=== PATIENT | female | born 1955 | race Caucasian/White ===

== ENCOUNTER 2019-02-12 13:38 | Observation (INO) | payer MEDICARE, BC ==
[2019-02-12] MEDS ORDERED: Sodium Chloride 0.9% 10 ML Syringe FLUSH PRN (13:48)
[2019-02-12] MEDS ORDERED: diphenhydrAMINE 50 MG/ML SDV IVPUSH ONE (13:49)
[2019-02-12] MEDS ORDERED: Prochlorperazine 10 MG/2 ML SDV IV ONE (13:49)
[2019-02-12] MEDS ORDERED: Ketorolac 15 MG/ML SDV IVPUSH ONE (13:49)
[2019-02-12] MEDS ORDERED: Sodium Chloride 0.9% 1,000 ML IV ONE (13:50)
--- NOTE | 2019-02-12 14:14 | EDM.PDOC ---
ED HPI GENERAL MEDICAL PROBLEM - General Chief Complaint: General Stated Complaint: Syncopal episode Time Seen by Provider: 02/12/19 13:38 Source of Information: Reports: Patient History Limitations: Reports: No Limitations - History of Present Illness INITIAL COMMENTS - FREE TEXT/NARRATIVE: Patient comes into the emergency department with complaint of syncopal episode. Patient states she was at home cooking when she felt faint and dizzy. Her was by her side and helped assist her to the ground. Patient states that she has not member the event but her states that her eyes remained open and patient continued talking to him, her hands were clammy and she was very pale. He ended up calling 911 for further assistance. EMS on scene and found that she was in a sinus arrhythmia heart rate anywhere in the 40s to the 70s. By the time she arrived at the emergency department she was feeling better however she was still feeling lightheaded and weak with a discomfort in the right occipital area. She has a history of migraines and she states that she often at these migraines and she was younger greater on her period time. She states that she does have a low throbbing headache on the right lower aspect of the occipital region. She states that it is consistent with the migraines that she's had in the past. She denies any focal neural deficits. She admits to having syncopal episodes with these migraines when younger. She denies any cardiac discomfort, chest pain, short of breath, GI upset, lower externally swelling, vision changes, or dizziness currently. She denies any recent illnesses or hospitalizations. Quality: Reports: Other Improves with: Reports: None Worsens with: Reports: None Associated Symptoms: Reports: No Other Symptoms Right Neck Pain Score (Numeric/FACES): 4 - Related Data Allergies Allergy/AdvReac Type Severity Reaction Status Date / Time BENITA Inhibitors Allergy Swelling Verified 02/12/19 13:51 amoxicillin Allergy Rash Verified 02/12/19 13:51 codeine Allergy Other Verified 02/12/19 13:51 Vhyfccn-Bim-Hsc Reductase Allergy Other Verified 02/12/19 13:51 Inhibitor Sulfa (Sulfonamide Allergy Hives Verified 02/12/19 13:51 Antibiotics) topiramate Allergy Nausea Verified 02/12/19 13:51 verapamil Allergy Abdominal Verified 02/12/19 13:51 Pain Home Meds: Home Meds Esomeprazole Magnesium [Nexium] 40 mg PO DAILY 11/29/14 [History] Levothyroxine 75 mcg PO DAILY 11/29/14 [History] Montelukast Sodium [Singulair] 10 mg PO DAILY 11/29/14 [History] Sertraline HCl [Zoloft] 100 mg PO DAILY 11/29/14 [History] Albuterol Sulfate [Albuterol Sulfate HFA] 1 - 2 puff IH Q4H PRN 04/26/15 [ History] Albuterol [Proventil Neb Soln] 2.5 mg NEB QIDRT PRN 04/26/15 [History] Primidone 50 mg PO TID 04/26/15 [History] Budesonide/Formoterol Fumarate [Symbicort 160-4.5 Mcg Inhaler] 2 puff IH BID [History] Polyethylene Glycol 3350 [MiraLAX] 17 gm PO DAILY 09/14/16 [History] Diltiazem HCl [Cardizem] 15 mg PO QID 05/03/18 [History] Fluticasone Propionate [Flonase] 2 spray NASBOTH DAILY 05/03/18 [History] Folic Acid/Multivit-Min/Lutein [Multi-Vitamin Gummies] 1 tab PO BID 05/03/18 [ History] Pramipexole Di-HCl [Mirapex] 0.25 tab PO BEDTIME 05/03/18 [History] Pravastatin Sodium [Pravachol] 10 mg PO DAILY 05/03/18 [History] Past Medical History Cardiovascular History: Reports: High Cholesterol Other Cardiovascular History: hyperlipidemia, hypertriglyceridemia Respiratory History: Reports: Asthma Gastrointestinal History: Reports: Chronic Constipation, GERD Other Gastrointestinal History: gastritis, stomach ulcers, hernia in stomach Genitourinary History: Reports: Urinary Incontinence Other EDGE BURNISHER History: miscarriage Other Musculoskeletal History: periodic limb movement disorder, RLS, arthritis Other Neuro History: smaller back of brain Psychiatric History: Reports: Anxiety Endocrine/Metabolic History: Reports: Diabetes, Type II, Hypothyroidism Other Endocrine/Metabolic History: hypothyroidism, hyperglycemia - Past Surgical History Other HEENT Surgeries/Procedures: septoplasty, rhinoplasty GI Surgical History: Reports: Bariatric Procedure Other GI Surgeries/Procedures: gastric bypass 2months ago. Social & Family History - Caffeine Use Caffeine Use: Reports: None ED ROS GENERAL - Review of Systems Review Of Systems: See Below Constitutional: Reports: No Symptoms HEENT: Reports: No Symptoms Respiratory: Reports: No Symptoms Cardiovascular: Reports: No Symptoms Endocrine: Reports: No Symptoms GI/Abdominal: Reports: No Symptoms Musculoskeletal: Reports: No Symptoms Skin: Reports: No Symptoms Neurological: Reports: Dizziness, Headache, Syncope. Denies: Confusion, Paresthesia, Tingling, Tremors, Trouble Speaking, Difficulty Walking, Weakness, Change in Speech, Gait Disturbance Psychiatric: Reports: No Symptoms Hematologic/Lymphatic: Reports: No Symptoms Immunologic: Reports: No Symptoms ED EXAM, GENERAL - Physical Exam Exam: See Below Exam Limited By: No Limitations General Appearance: Alert, WD/WN, No Apparent Distress Eye Exam: Bilateral Eye: EOMI, PERRL Ear Exam: Bilateral Ear: Auricle Normal, Canal Normal, TM normal Throat/Mouth: Normal Inspection, Normal Lips Head: Atraumatic, Normocephalic Neck: Normal Inspection, Supple, Non-Tender, Full Range of Motion Cardiovascular: Normal Peripheral Pulses, Bradycardia Extremities: Normal Inspection, Normal Range of Motion, No Pedal Edema, Normal Capillary Refill Neurological: Alert, Oriented Psychiatric: Normal Affect, Normal Mood Skin Exam: Cool, Pallor Course - Vital Signs Last Recorded V/S: Last Vital Signs Temp 35.7 C 02/12/19 13:45 Pulse 52 L 02/12/19 13:45 Resp 16 02/12/19 13:45 BP 96/59 L 02/12/19 13:45 Pulse Ox 99 02/12/19 13:45 - Orders/Labs/Meds Orders: Active Orders 24 hr Category Date Time Status Admission Status [Patient Status] [ADT] Routine ADT 02/12/19 15:09 Ordered Sodium Chloride 0.9% [Saline Flush] Med 02/12/19 13:48 Active 10 ml FLUSH ASDIRECTED PRN Peripheral IV Insertion Adult [OM.PC] Stat Oth 02/12/19 13:48 Ordered Medication Orders Sodium Chloride (Saline Flush) 10 ml FLUSH ASDIRECTED PRN PRN Reason: Keep Vein Open Labs: Laboratory Tests 02/12/19 02/12/19 Range/Units 13:55 13:55 WBC 7.0 (4.0-10.0) x10^3/uL RBC 3.82 L (4.00-5.50) x10^6/uL Hgb 11.7 L D (12.0-16.0) g/dL Hct 35.1 (33.0-47.0) % MCV 91.9 D (78.0-93.0) fL MCH 30.6 (26.0-32.0) pg MCHC 33.3 (32.0-36.0) g/dL RDW Coeff of Nishant 14.1 (10.0-15.0) % Plt Count 242 D (130-400) x10^3/uL Add Manual Diff Yes Neutrophils % (Manual) 53 (50-80) % Band Neutrophils % 2 (0-6) % Lymphocytes % (Manual) 31 (25-50) % Monocytes % (Manual) 3 (2-11) % Eosinophils % (Manual) 10 H (0-4) % Basophils % (Manual) 1 (0-1) % Sodium 145 (136-145) mmol/L Potassium 3.3 L (3.5-5.1) mmol/L Chloride 106 (98-107) mmol/L Carbon Dioxide 28 (21-32) mmol/L Anion Gap 14.3 (10-20) mmol/L BUN 21 H (7-18) mg/dL Creatinine 0.8 (0.55-1.02) mg/dL Est Cr Clr Drug Dosing TNP Estimated GFR (MDRD) > 60 Glucose 77 (74-106) mg/dL Calcium 8.4 L (8.5-10.1) mg/dL Corrected Calcium 9.20 (8.5-10.1) mg/dL Total Bilirubin 0.4 (0.2-1.0) mg/dL AST 31 (15-37) U/L ALT 35 (14-59) U/L Alkaline Phosphatase 119 H (46-116) U/L Troponin I < 0.017 (<=0.056) ng/mL NT-Pro-B Natriuret Pep 232 H (<=125) pg/mL Total Protein 6.4 (6.4-8.2) g/dL Albumin 3.0 L (3.4-5.0) g/dL Globulin 3.4 Albumin/Globulin Ratio 0.88 Meds: Medications Generic Name Dose Route Start Last Admin Trade Name Freq PRN Reason Stop Dose Admin Sodium Chloride 10 ml 02/12/19 13:48 Saline Flush FLUSH ASDIRECTED PRN Keep Vein Open Discontinued Medications Generic Name Dose Route Start Last Admin Trade Name Robert PRN Reason Stop Dose Admin Diphenhydramine HCl 25 mg 02/12/19 13:49 02/12/19 13:54 Benadryl IVPUSH 02/12/19 13:50 25 mg ONETIME ONE Administration Sodium Chloride 1,000 mls @ 1,000 mls/hr 02/12/19 13:50 02/12/19 13:58 Normal Saline IV 02/12/19 14:49 1,000 mls/hr ONETIME ONE Administration Ketorolac Tromethamine 15 mg 02/12/19 13:49 02/12/19 13:56 Toradol IVPUSH 02/12/19 13:50 15 mg ONETIME ONE Administration Prochlorperazine Edisylate 10 mg 02/12/19 13:49 02/12/19 13:59 Compazine IV 02/12/19 13:50 10 mg ONETIME ONE Administration Departure - Departure Time of Disposition: 15:20 Disposition: Refer to Observation Condition: Good Clinical Impression: Syncope Qualifiers: Syncope type: unspecified Qualified Code(s): R55 - Syncope and collapse Migraine Qualifiers: Migraine type: without aura Status migrainosus presence: without status migrainosus Intractability: not intractable Qualified Code(s): G43.009 - Migraine without aura, not intractable, without status migrainosus - Discharge Information *PRESCRIPTION DRUG MONITORING PROGRAM REVIEWED*: Not Applicable *COPY OF PRESCRIPTION DRUG MONITORING REPORT IN PATIENT ELLIOTT: Not Applicable Forms: ED Department Discharge - Problem List Review Problem List Initiated/Reviewed/Updated: Yes - My Orders Last 24 Hours: My Active Orders 02/12/19 13:48 Sodium Chloride 0.9% [Saline Flush] 10 ml FLUSH ASDIRECTED PRN Peripheral IV Insertion Adult [OM.PC] Stat 02/12/19 15:09 Admission Status [Patient Status] [ADT] Routine - Assessment/Plan Admission H&P: Please use this note as an admission H&P Last 24 Hours: My Active Orders 02/12/19 13:48 Sodium Chloride 0.9% [Saline Flush] 10 ml FLUSH ASDIRECTED PRN Peripheral IV Insertion Adult [OM.PC] Stat 02/12/19 15:09 Admission Status [Patient Status] [ADT] Routine Assessment:: 1. Syncopal episode 2. Migraine Plan: 1. Labs completed in the ER. Results reviewed with patient 2. EKG from ambulance reviewed and results reviewed with the patient. 3. Normal saline, Compazine, Benadryl, Toradol given emergency Department for comfort 4. CT of the head completed without contrast. Results reviewed with patient. No acute findings 5. Patient states that she is feeling better however she still has a lingering headache. She is also nervous about going home because of the sudden onset of the syncopal episode. Patient's heart rate continues to trend high 40s low 50s. Patient has no chest discomfort or shortness of breath currently. She also states that the dizziness and lightheaded has resolved. Patient will be admitted under observation for further monitoring regarding her syncopal episode /bradycardia and migraine. 6. Admit under observation #1 syncopal episode - IV fluids will be given to maintain hydration - Cardiac monitoring, vital signs, and nursing monitoring while patient is hospitalized - Lab reevaluation will be completed later this afternoon again in the morning - Orthostatic blood pressures will be monitored - Neurological exams will be completed at minimum every 4 hours or if patient' s condition changes #2 migraine - Oral and IV medication be available to the patient if headaches continue - Neurological checks will be completed every 4 hours for evaluation of worsening of the symptoms - CT completed emergency department. Results were negative no acute findings. We'll continue to monitor - IV fluids provided to the patient during hospitalization DVT prophylaxis will be initiated, code level 1, diet regular, ambulation as tolerated, and cardiac monitoring continuous.
[2019-02-12 14:31] LABS: ANION GAP 14.3 mmol/L (10-20); CHLORIDE,CL 106 mmol/L (98-107); SODIUM,NA 145 mmol/L (136-145)
--- NOTE | 2019-02-12 14:57 | CT ---
[id number] CT/CT Head WO IV EXAM: CT Head WO IV CLINICAL DATA: SYNCOPAL EPISODE. COMPARISON STUDY: None FINDINGS: No intracranial hemorrhage, extra-axial fluid collection, mass, or acute ischemia. No hydrocephalus. Mild changes of paranasal sinusitis, including air-fluid levels in the maxillary sinuses, suggesting acute sinusitis. Mastoid air cells middle ear cavities are clear. IMPRESSION: Normal examination of the brain. Acute maxillary sinusitis. Rayo Hicks MD 02/12/19 [id number] Thank you for allowing us to participate in the care of your patient.
[2019-02-12] MEDS ORDERED: Ondansetron 4 MG Tab.DIS PO PRN (16:00)
[2019-02-12] MEDS ORDERED: Ketorolac 30 MG/ML SDV IVPUSH PRN (16:00)
[2019-02-12] MEDS ORDERED: Hydrocortisone 2.5% Crm 30 GM Tube TOP PRN (16:04)
[2019-02-12] MEDS ORDERED: Take Home: Albuterol 6.7 GM Inhaler, 1 Inhaler Pack INH PRN (16:04)
[2019-02-12] MEDS ORDERED: Polyethylene Glycol 3350 Powder 17 GM Packet PO PRN (16:04)
[2019-02-12] MEDS ORDERED: Albuterol 0.083% 2.5 MG/3 ML Neb Soln NEB PRN (16:04)
[2019-02-12] MEDS: Sodium Chloride 0.9% 1,000 ML IV SCH (16:28)
[2019-02-12] MEDS: Primidone 50 MG Tab PO SCH (19:14)
[2019-02-12] MEDS: SYMBICORT 160-4.5 **OWN MED IH SCH (19:15)
[2019-02-12] MEDS: Calcium Carbonate 750 MG Tab.Chew PO SCH (19:15)
[2019-02-12] MEDS ORDERED: Pramipexole 0.125 MG Tab PO SCH (20:00)
[2019-02-12] MEDS ORDERED: Doxycycline 100 MG Cap PO SCH (20:00)
[2019-02-13] MEDS: Sodium Chloride 0.9% 1,000 ML IV SCH ×2 (00:08→07:50)
[2019-02-13 06:50] VITALS: BP 133/77
[2019-02-13] MEDS ORDERED: Levothyroxine 75 MCG Tab PO SCH (07:00)
[2019-02-13] MEDS ORDERED: Omeprazole 20 MG Cap.CR PO SCH (07:00)
[2019-02-13] MEDS: Calcium Carbonate 750 MG Tab.Chew PO SCH (07:51)
[2019-02-13] MEDS: Primidone 50 MG Tab PO SCH (07:54)
[2019-02-13] MEDS: SYMBICORT 160-4.5 **OWN MED IH SCH (07:54)
[2019-02-13] MEDS ORDERED: predniSONE 10 MG Tab PO SCH (08:00)
[2019-02-13] MEDS ORDERED: Sertraline 100 MG Tab PO SCH (08:00)
[2019-02-13] MEDS ORDERED: Montelukast 10 MG Tab PO SCH (08:00)
[2019-02-13] MEDS ORDERED: Simvastatin 10 MG Tab PO SCH (08:00)
[2019-02-13] MEDS ORDERED: Fluticasone Propionate Nasal Spray 16 GM Bottle NASBOTH SCH (08:00)
[2019-02-13] MEDS ORDERED: Multivitamins with Iron/Calcium/Folic Acid/Minerals Tab PO SCH (08:00)
[2019-02-13 08:24] LABS: CHLORIDE,CL 109 mmol/L (98-107); SODIUM,NA 144 mmol/L (136-145)
[2019-02-13 08:25] LABS: ANION GAP 13.1 mmol/L (10-20)
--- NOTE | 2019-02-13 08:47 | PCM.DCSUM1 ---
Discharge Summary - Hospital Course HPI Initial Comments: Patient came into the emergency department yesterday with complaint of syncopal episode. Patient states she was at home cooking when she felt faint and dizzy. Her was by her side and helped assist her to the ground. Patient states that she has not member the event but her states that her eyes remained open and patient continued talking to him, her hands were clammy and she was very pale. He ended up calling 911 for further assistance. EMS on scene and found that she was in a sinus arrhythmia heart rate anywhere in the 40s to the 70s. By the time she arrived at the emergency department she was feeling better however she was still feeling lightheaded and weak with a discomfort in the right occipital area. She has a history of migraines and she states that she often at these migraines and she was younger greater on her period time. She states that she does have a low throbbing headache on the right lower aspect of the occipital region. She states that it is consistent with the migraines that she's had in the past. She denies any focal neural deficits. She admits to having syncopal episodes with these migraines when younger. She denies any cardiac discomfort, chest pain, short of breath, GI upset, lower externally swelling, vision changes, or dizziness currently. She denies any recent illnesses or hospitalizations.Over the course of the night the patient was given IV fluids, labs, and cardiac monitoring. Pt denies any concerns from the night. Staff state she did have one episode of bradycardia in the 30's only about 2-3 seconds noted on the the cardiac monitoring. #1 syncopal episode-resolved - IV fluids will be given to maintain hydration throughout the night. She is drinking oral liquids and eating without difficulty. IV fluids discontinued. - Cardiac monitoring, vital signs, and nursing monitoring while patient is hospitalized. No changes in her EKG noted. Pt has not had any further syncopal episodes, weakness, lightheaded, or dizzy feeling. She did have an episode during the night of heart rate going into the 30's but for only 2-3 seconds. Cardiology was consulted through [facility] this am and she recommends follow up in the clinic as needed. As long as her heart rate elevates while ambulating and exercise they would monitor and evaluate her cardiac status on the outpatient status. - Lab reevaluation will be completed later this afternoon again in the morning. Labs remained within normal limits. - Orthostatic blood pressures will be monitored. No changes in her blood pressure was noted during hospital stay. - Neurological exams will be completed at minimum every 4 hours or if patient' s condition changes. Patient remains at her baseline with no changes. #2 migraine-resolved - Oral and IV medication be available to the patient if headaches continue. No further discomfort or pain noted throughout the night. - Neurological checks will be completed every 4 hours for evaluation of worsening of the symptoms. Patient remains at her baseline with no changes - CT completed emergency department. Results were negative no acute findings. We'll continue to monitor - IV fluids provided to the patient during hospitalization. Labs remained within normal limits. She is drinking oral liquids and eating without difficulty. Patient would like to be discharged. She was provided follow up information, activity and diet, and medication management. Patient was also provided the cardiac warning signs and was advised to call 911 if chest pain arise. Patient is to follow up with PCP on Friday for further monitoring and management of the bradycardia. All questions and concerns addressed prior to discharge. Diagnosis: Stroke: No Modified [place] Scale: No Symptoms at All Modified Franki Scale Score: 0 - Discharge Data Discharge Date: 02/13/19 Discharge Disposition: Home, Self-Care 01 Condition: Good - Discharge Diagnosis/Problem(s) (1) Migraine SNOMED Code(s): 69446741 ICD Code: G43.909 - MIGRAINE, UNSP, NOT INTRACTABLE, WITHOUT STATUS MIGRAINOSUS Status: Acute Current Visit: Yes Qualifiers: Migraine type: without aura Status migrainosus presence: without status migrainosus Intractability: not intractable Qualified Code(s): G43.009 - Migraine without aura, not intractable, without status migrainosus (2) Syncope SNOMED Code(s): 844459495 ICD Code: R55 - SYNCOPE AND COLLAPSE Status: Acute Current Visit: Yes Qualifiers: Syncope type: unspecified Qualified Code(s): R55 - Syncope and collapse - Patient Summary/Data Recommended Follow-up Testing/Procedures: Follow up with PCP on Friday or Friday - Patient Instructions Diet: Usual Diet as Tolerated Activity: No Strenuous Activities Driving: May Drive Today Showering/Bathing: May Shower Other/Special Instructions: 1. Rest. 2. Increase water intake. 3. No strenous activity. 4. Follow up in the clinic on Friday for re-evaluation. 5. Can take over the counter pain medications if your headache/migraine symptoms return. 6. Call 911 or return immediately if sycopal episode, chest pain, or Shortness of breath occurs. 7. Activity and diet as tolerated. 8. Remember to not skip an meals. 9. Rise from the laying or seated position very slowly to prevent dizziness. 10. Call with any questions or concerns - Discharge Plan *PRESCRIPTION DRUG MONITORING PROGRAM REVIEWED*: Not Applicable *COPY OF PRESCRIPTION DRUG MONITORING REPORT IN PATIENT ELLIOTT: Not Applicable Home Medications: Home Meds Levothyroxine 75 mcg PO DAILY 11/29/14 [History] Montelukast Sodium [Singulair] 10 mg PO DAILY 11/29/14 [History] Sertraline HCl [Zoloft] 100 mg PO DAILY 11/29/14 [History] Albuterol Sulfate [Albuterol Sulfate HFA] 2 puff IH Q4H PRN 04/26/15 [History] Albuterol [Proventil Neb Soln] 2.5 mg NEB QIDRT PRN 04/26/15 [History] Budesonide/Formoterol Fumarate [Symbicort 160-4.5 Mcg Inhaler] 2 puff IH BID [History] Polyethylene Glycol 3350 [MiraLAX] 17 gm PO DAILY PRN 09/14/16 [History] Fluticasone Propionate [Flonase] 2 spray NASBOTH DAILY 05/03/18 [History] Folic Acid/Multivit-Min/Lutein [Multi-Vitamin Gummies] 2 tab PO BID 05/03/18 [ History] Pramipexole Di-HCl [Mirapex] 0.25 tab PO BEDTIME 05/03/18 [History] Pravastatin Sodium [Pravachol] 10 mg PO DAILY 05/03/18 [History] Calcium Carbonate [Calcium] 500 mg PO TID 02/12/19 [History] Esomeprazole Magnesium [Nexium] 40 mg PO DAILY 02/12/19 [History] Hydrocortisone [Hydrocortisone 2.5% Crm] 1 dose TOP BID PRN 02/12/19 [History] Primidone [Mysoline] 50 mg PO TID 02/12/19 [History] predniSONE [Prednisone] 10 mg PO DAILY 02/12/19 [History] Patient Handouts: Migraine Headache, [id number], Syncope, [id number], Ambulatory Cardiac Monitoring Forms: ED Department Discharge Referrals: Prudence Buck MD [Primary Care Provider] - - Discharge Summary/Plan Comment DC Time >30 min.: Yes (Consult with [facility] cardiology regarding bradycardia ) Discharge Summary/Plan Comment: 1. Pt will be discharged with instructions to follow up with PCP on Friday or Friday 2. Activity and diet as tolerated 3. Call 911 or return if chest pain, SOB, or syncopal episode occurs. 4. OTC medications can be taken for any returning headache/migraine if it re- occurs. 5. All questions and concerns were addressed prior to discharge. - General Info Date of Service: 02/13/19 Admission Dx/Problem (Free Text: Syncopal episode Migraine headache Functional Status: Reports: Pain Controlled, Tolerating Diet, Ambulating, Urinating - Review of Systems General: Reports: No Symptoms HEENT: Reports: No Symptoms Pulmonary: Reports: No Symptoms Cardiovascular: Reports: No Symptoms Gastrointestinal: Reports: No Symptoms Genitourinary: Reports: No Symptoms Musculoskeletal: Reports: No Symptoms Skin: Reports: No Symptoms Neurological: Reports: No Symptoms Psychiatric: Reports: No Symptoms - Patient Data Vitals - Most Recent: Last Vital Signs Temp 37.1 C 02/13/19 06:00 Pulse 47 L 02/13/19 06:00 Resp 18 02/12/19 22:00 BP 133/77 02/13/19 06:00 Pulse Ox 100 02/13/19 06:00 Weight - Most Recent: 54.431 kg I&O - Last 24 hours: Intake & Output 02/12/19 02/13/19 02/13/19 22:59 06:59 14:59 Intake Total 400 1800 Output Total 200 Balance 400 1600 Lab Results - Last 24 hrs: Laboratory Results - last 24 hr 02/12/19 02/12/19 02/12/19 Range/Units 13:55 13:55 20:00 WBC 7.0 (4.0-10.0) x10^3/uL RBC 3.82 L (4.00-5.50) x10^6/uL Hgb 11.7 L D (12.0-16.0) g/dL Hct 35.1 (33.0-47.0) % MCV 91.9 D (78.0-93.0) fL MCH 30.6 (26.0-32.0) pg MCHC 33.3 (32.0-36.0) g/dL RDW Coeff of Nishant 14.1 (10.0-15.0) % Plt Count 242 D (130-400) x10^3/uL Add Manual Diff Yes Neutrophils % (Manual) 53 (50-80) % Band Neutrophils % 2 (0-6) % Lymphocytes % (Manual) 31 (25-50) % Monocytes % (Manual) 3 (2-11) % Eosinophils % (Manual) 10 H (0-4) % Basophils % (Manual) 1 (0-1) % Sodium 145 (136-145) mmol/L Potassium 3.3 L (3.5-5.1) mmol/L Chloride 106 (98-107) mmol/L Carbon Dioxide 28 (21-32) mmol/L Anion Gap 14.3 (10-20) mmol/L BUN 21 H (7-18) mg/dL Creatinine 0.8 (0.55-1.02) mg/dL Est Cr Clr Drug Dosing TNP Estimated GFR (MDRD) > 60 Glucose 77 (74-106) mg/dL Calcium 8.4 L (8.5-10.1) mg/dL Corrected Calcium 9.20 (8.5-10.1) mg/dL Total Bilirubin 0.4 (0.2-1.0) mg/dL AST 31 (15-37) U/L ALT 35 (14-59) U/L Alkaline Phosphatase 119 H (46-116) U/L Troponin I < 0.017 0.020 (<=0.056) ng/mL NT-Pro-B Natriuret Pep 232 H (<=125) pg/mL Total Protein 6.4 (6.4-8.2) g/dL Albumin 3.0 L (3.4-5.0) g/dL Globulin 3.4 Albumin/Globulin Ratio 0.88 02/13/19 02/13/19 Range/Units 07:10 07:10 WBC 5.1 (4.0-10.0) x10^3/uL RBC 3.66 L (4.00-5.50) x10^6/uL Hgb 11.2 L (12.0-16.0) g/dL Hct 33.8 (33.0-47.0) % MCV 92.3 (78.0-93.0) fL MCH 30.6 (26.0-32.0) pg MCHC 33.1 (32.0-36.0) g/dL RDW Coeff of Nishant 14.3 (10.0-15.0) % Plt Count 214 (130-400) x10^3/uL Add Manual Diff Yes Neutrophils % (Manual) (50-80) % Band Neutrophils % (0-6) % Lymphocytes % (Manual) (25-50) % Monocytes % (Manual) (2-11) % Eosinophils % (Manual) (0-4) % Basophils % (Manual) (0-1) % Sodium 144 (136-145) mmol/L Potassium 4.1 (3.5-5.1) mmol/L Chloride 109 H (98-107) mmol/L Carbon Dioxide 26 (21-32) mmol/L Anion Gap 13.1 (10-20) mmol/L BUN 16 (7-18) mg/dL Creatinine 0.7 (0.55-1.02) mg/dL Est Cr Clr Drug Dosing 59.65 Estimated GFR (MDRD) > 60 Glucose 77 (74-106) mg/dL Calcium 8.5 (8.5-10.1) mg/dL Corrected Calcium 9.54 (8.5-10.1) mg/dL Total Bilirubin 0.5 (0.2-1.0) mg/dL AST 23 (15-37) U/L ALT 29 (14-59) U/L Alkaline Phosphatase 105 (46-116) U/L Troponin I 0.021 (<=0.056) ng/mL NT-Pro-B Natriuret Pep (<=125) pg/mL Total Protein 5.9 L (6.4-8.2) g/dL Albumin 2.7 L (3.4-5.0) g/dL Globulin 3.2 Albumin/Globulin Ratio 0.84 Med Orders - Current: Current Medications Albuterol (Proventil Neb Soln) 2.5 mg NEB QIDRT PRN PRN Reason: Shortness of Breath Calcium Carbonate/Glycine (Tums Extra Strength) 750 mg PO TID [facility] Last Admin: 02/13/19 07:51 Dose: 750 mg Fluticasone Propionate (Flonase) 0 gm NASBOTH DAILY [facility] Last Admin: 02/13/19 07:50 Dose: 1 dose Hydrocortisone (Hydrocortisone 2.5% Crm) 0 gm TOP BID PRN PRN Reason: Itching Sodium Chloride (Normal Saline) 1,000 mls @ 125 mls/hr IV ASDIRECTED [facility] Last Admin: 02/13/19 07:50 Dose: 125 mls/hr Ketorolac Tromethamine (Toradol) 30 mg IVPUSH Q6H PRN PRN Reason: Pain (moderate 4-6) Levothyroxine Sodium (Levothyroxine) 75 mcg PO ACBRK [facility] Last Admin: 02/13/19 06:27 Dose: 75 mcg Montelukast Sodium (Singulair) 10 mg PO DAILY [facility] Last Admin: 02/13/19 07:51 Dose: 10 mg Multivitamins/Minerals (Thera M Plus) 1 tab PO DAILY [facility] Last Admin: 02/13/19 07:51 Dose: 1 tab Symbicort 160-4.5 (Own Med) 0 puff IH BID [facility] Last Admin: 02/13/19 07:54 Dose: 2 puff Omeprazole (Omeprazole) 40 mg PO ACBRK [facility] Last Admin: 02/13/19 06:27 Dose: 40 mg Ondansetron HCl (Zofran Odt) 4 mg PO Q6H PRN PRN Reason: nausea, able to take PO Polyethylene Glycol (Miralax) 17 gm PO DAILY PRN PRN Reason: Constipation Pramipexole Dihydrochloride (Mirapex) 0.25 mg PO BEDTIME [facility] Last Admin: 02/12/19 19:14 Dose: 0.25 mg Prednisone (Prednisone) 10 mg PO DAILY [facility] Last Admin: 02/13/19 07:51 Dose: 10 mg Primidone (Mysoline) 50 mg PO TID [facility] Last Admin: 02/13/19 07:54 Dose: 50 mg Sertraline HCl (Zoloft) 100 mg PO DAILY [facility] Last Admin: 02/13/19 07:51 Dose: 100 mg Simvastatin (Zocor) 5 mg PO DAILY [facility] Last Admin: 02/13/19 07:51 Dose: 5 mg Sodium Chloride (Saline Flush) 10 ml FLUSH ASDIRECTED PRN PRN Reason: Keep Vein Open Discontinued Medications Albuterol (Take Home: Albuterol 6.7 Gm, 1 Inh Pack) packet INH Q4H PRN PRN Reason: Shortness of Breath Diphenhydramine HCl (Benadryl) 25 mg IVPUSH ONETIME ONE Stop: 02/12/19 13:50 Last Admin: 02/12/19 13:54 Dose: 25 mg Doxycycline Hyclate (Vibramycin) 100 mg PO BID [facility] Last Admin: 02/12/19 20:54 Dose: Not Given Sodium Chloride (Normal Saline) 1,000 mls @ 1,000 mls/hr IV ONETIME ONE Stop: 02/12/19 14:49 Last Admin: 02/12/19 13:58 Dose: 1,000 mls/hr Ketorolac Tromethamine (Toradol) 15 mg IVPUSH ONETIME ONE Stop: 02/12/19 13:50 Last Admin: 02/12/19 13:56 Dose: 15 mg Prochlorperazine Edisylate (Compazine) 10 mg IV ONETIME ONE Stop: 02/12/19 13:50 Last Admin: 02/12/19 13:59 Dose: 10 mg - Exam General: Reports: Alert, Oriented HEENT: Reports: Pupils Equal, Pupils Reactive, EOMI, Mucous Membr. Moist/[place] Neck: Reports: Supple Lungs: Reports: Clear to Auscultation, Normal Respiratory Effort Cardiovascular: Reports: Regular Rate, Regular Rhythm Back Exam: Reports: Normal Inspection, Full Range of Motion Extremities: Normal Inspection, Normal Range of Motion, Non-Tender, No Pedal Edema, Normal Capillary Refill Skin: Reports: Warm, Dry, Intact Neurological: Reports: No New Focal Deficit Psy/Mental Status: Reports: Alert, Normal Affect, Normal Mood EKG INTERPRETATION Rhythm: NSR P-Wave: Present QRS: Normal ST-T: Normal QT: Normal EKG Interpretation Comments: normal sinus
== END 2019-02-13 10:10 | disposition home or self-care (01) ==
LOC: VM.ED 13:38 → VM.MS 15:09
PROVIDERS: ADMIT Nurse Practitioner; ATTEND Nurse Practitioner
DX: R55 Syncope and collapse (principal); G43.009 Migraine without aura, not intractable, without status migrainosus; E11.9 Type 2 diabetes mellitus without complications; E78.00 Pure hypercholesterolemia, unspecified; K21.9 Gastro-esophageal reflux disease without esophagitis; J45.909 Unspecified asthma, uncomplicated; F41.9 Anxiety disorder, unspecified; E03.9 Hypothyroidism, unspecified; Z88.0 Allergy status to penicillin; Z88.5 Allergy status to narcotic agent; Z88.8 Allergy status to other drugs, medicaments and biological substances; Z88.2 Allergy status to sulfonamides; Z79.51 Long term (current) use of inhaled steroids; Z79.899 Other long term (current) drug therapy
CPT/HCPCS: 36415; 70450; 80053; 83880; 84484; 85025; 96361; 96374; 96375; 99284; A9270; G0378; J0780; J1200; J1885; J7030

== ENCOUNTER 2020-05-24 14:38 | Emergency (ER) | payer MEDICARE, BC ==
--- NOTE | 2020-05-24 14:59 | EDM.PDOC ---
ED HPI GENERAL MEDICAL PROBLEM - General Stated Complaint: FALL Time Seen by Provider: 05/24/20 14:40 Source of Information: Reports: Patient History Limitations: Reports: No Limitations - History of Present Illness INITIAL COMMENTS - FREE TEXT/NARRATIVE: Patient comes emergency department today with complaints of an injury to the orbit of her right eye and an injury to her left index finger abrasion. She was trying to do something with her dog and got cut at caught up and tripped and fell landing forward striking the right side of her eye on the ground with her glasses. She did not get knocked out. She has no head neck or back pain. She denies any visual acuity changes. No diplopia. She is unsure of when her last tetanus shot was. She has no weakness dizziness lightheadedness. No change in the functionality or sensation of her upper or lower extremities. No neck pain no back pain. She also complains of an abrasion to the left index finger as well. Face/Facial Pain Score (Numeric/FACES): 3 - Related Data Allergies Allergy/AdvReac Type Severity Reaction Status Date / Time BENITA Inhibitors Allergy Severe Swelling Verified 05/24/20 15:00 amoxicillin Allergy Intermediate Rash Verified 05/24/20 15:00 clavulanic acid Allergy Intermediate Rash Verified 05/24/20 15:00 [From Augmentin] Sulfa (Sulfonamide Allergy Intermediate Hives Verified 05/24/20 15:00 Antibiotics) codeine Allergy Other Verified 05/24/20 15:00 NSAIDS (Non-Steroidal Allergy Cannot Verified 05/24/20 15:00 Anti-Inflamma Remember [id number] Reductase Allergy Other Verified 05/24/20 15:00 Inhibitor topiramate AdvReac Nausea Verified 05/24/20 15:00 verapamil AdvReac Abdominal Verified 05/24/20 15:00 Pain Home Meds: Home Meds Levothyroxine 75 mcg PO DAILY 11/29/14 [History] Montelukast Sodium [Singulair] 10 mg PO DAILY 11/29/14 [History] Sertraline HCl [Zoloft] 100 mg PO DAILY 11/29/14 [History] Albuterol Sulfate [Albuterol Sulfate HFA] 2 puff IH Q4H PRN 04/26/15 [History] Albuterol [Proventil Neb Soln] 2.5 mg NEB QIDRT PRN 04/26/15 [History] Budesonide/Formoterol Fumarate [Symbicort 160-4.5 Mcg Inhaler] 2 puff IH BID 09/14/16 [History] Polyethylene Glycol 3350 [MiraLAX] 17 gm PO DAILY PRN 09/14/16 [History] Fluticasone Propionate [Flonase] 2 spray NASBOTH DAILY 05/03/18 [History] Folic Acid/Multivit-Min/Lutein [Multi-Vitamin Gummies] 2 tab PO BID 05/03/18 [History] Pramipexole Di-HCl [Mirapex] 0.25 tab PO BEDTIME 05/03/18 [History] Pravastatin Sodium [Pravachol] 10 mg PO DAILY 05/03/18 [History] Calcium Carbonate [Calcium] 500 mg PO TID 02/12/19 [History] Esomeprazole Magnesium [Nexium] 40 mg PO DAILY 02/12/19 [History] Hydrocortisone [Hydrocortisone 2.5% Crm] 1 dose TOP BID PRN 02/12/19 [History] Primidone [Mysoline] 50 mg PO TID 02/12/19 [History] predniSONE [Prednisone] 10 mg PO DAILY 02/12/19 [History] Past Medical History HEENT History: Reports: Other (See Below) Other HEENT History: presbyopia Cardiovascular History: Reports: High Cholesterol Other Cardiovascular History: hyperlipidemia, hypertriglyceridemia Respiratory History: Reports: Asthma Gastrointestinal History: Reports: Chronic Constipation, GERD Other Gastrointestinal History: gastritis, stomach ulcers, hernia in stomach Genitourinary History: Reports: Urinary Incontinence Other [employer] History: miscarriage Other Musculoskeletal History: periodic limb movement disorder, RLS, arthritis Other Neuro History: smaller back of brain Psychiatric History: Reports: Anxiety Endocrine/Metabolic History: Reports: Diabetes, Type II, Hypothyroidism Other Endocrine/Metabolic History: hypothyroidism, hyperglycemia - Past Surgical History Other HEENT Surgeries/Procedures: septoplasty, rhinoplasty GI Surgical History: Reports: Bariatric Procedure Other GI Surgeries/Procedures: gastric bypass 2months ago. Social & Family History - Caffeine Use Caffeine Use: Reports: None ED ROS GENERAL - Review of Systems Review Of Systems: Comprehensive ROS is negative, except as noted in HPI. ED EXAM, SKIN/RASH Exam: See Below Exam Limited By: No Limitations General Appearance: Alert, WD/WN, No Apparent Distress Eye Exam: Bilateral Eye: EOMI, Normal Inspection, PERRL Ears: Normal External Exam, Hearing Grossly Normal. No: Normal Canal (The left TM is occluded with cerumen the right canal is unremarkable), Normal TMs (Left TM is occluded with cerumen the right TM is normal in appearance) Nose: Normal Inspection, Normal Mucosa, No Blood Throat/Mouth: Normal Inspection, Normal Lips, Normal Teeth, Normal Gums, No Airway Compromise Head: Normocephalic, Facial Tenderness (The patient on the right lateral aspect of the orbit just above the right eyebrow on the lateral aspect there is a very superficial abrasion approximately 1 cm. Just below this there is a very small superficial laceration that is not gaping about 1.5 cm in length. And on the lateral aspect of the lower eyelid on the zygomatic arch there is kind of a J shaped laceration that is 1.5 cm in length. Minimally gaping on the medial aspect of this. There is no overt bony deformity. There is no subcutaneous emphysema. There is no crepitus.). No: Facial Swelling, Sinus Tenderness Neck: Normal Inspection, Supple, Non-Tender. No: Tender Lateral, Tender Midline Respiratory/Chest: No Respiratory Distress, Lungs Clear, Normal Breath Sounds Cardiovascular: Normal Peripheral Pulses, Regular Rate, Rhythm Peripheral Pulses: 2+: Radial (R) GI/Abdominal: Normal Bowel Sounds, Soft, Non-Tender (Female) Exam: Deferred Rectal (Female) Exam: Deferred Back Exam: No: CVA Tenderness (L), CVA Tenderness (R), Decreased Range of Motion, Muscle Spasm, Paraspinal Tenderness, Vertebral Tenderness Extremities: Normal Range of Motion, No Pedal Edema. No: Normal Inspection (Her extremities have normal inspection other than on the dorsal aspect of the left second digit on the MCP joint. There is a distal to proximal very superficial abrasion that does not gape. There is no bony deformities crepitus. She is able to flex and extend appropriately at the MCP DIP PIP joint and IP joints of all fingers of the left hand. The rest of the hand is atraumatic. CMS is intact appropriately.) Neurological: Alert, Oriented, CN II-XII Intact, Normal Cognition, Normal Gait, No Motor/Sensory Deficits Psychiatric: Normal Affect, Normal Mood Skin: Warm, Dry, Intact, Normal Color, No Rash Course - Vital Signs Last Recorded V/S: Last Vital Signs Temp 98.7 F 05/24/20 14:50 Pulse 63 05/24/20 14:50 Resp 16 05/24/20 14:50 BP 126/76 05/24/20 14:50 Pulse Ox 97 05/24/20 14:50 - Re-Assessments/Exams Free Text/Narrative Re-Assessment/Exam: 05/24/20 15:17 The wounds were cleansed with chlorhexidine. There is no foreign material. The abrasion above the left eye that is superficial was left alone to heal by secondary intention. There is a small laceration 1 cm in length in the eyebrow that is very superficial that was repaired with good skin approximation with Dermabond. Similarly the laceration on the right zygomatic arch was well approximated by manual manipulation and Dermabond with good skin approximation and holding. The abrasion on the left MCP joint as well was covered with Dermabond to prevent infection and promote healing. Discharge instructions as below are explained to the patient she is comfortable with this plan and her questions are answered. Again she had no loss consciousness she has no headache or no neuro symptoms. Departure - Departure Time of Disposition: 14:58 Disposition: Home, Self-Care 01 Clinical Impression: Abrasion, finger without infection Face lacerations Qualifiers: Encounter type: initial encounter Qualified Code(s): S01.81XA - Laceration without foreign body of other part of head, initial encounter - Discharge Information Instructions: How to Use Cold Therapy, Sutures, [place], or Adhesive Wound Closure, [id number] Additional Instructions: Ice to the sore areas. Tylenol as needed for pain. Leave the Dermabond glue pretty much alone. Do not get it wet. Do not pull at it. If the edges start to peel, do not pull off just trim the edges with a finger nail clipper. Watch for signs of infection. Return to the ED if new or worsening symptoms. Recheck with PCP if any concerns. Sepsis Event Note (ED) - Focused Exam Vital Signs: Vital Signs Temp Pulse Resp BP Pulse Ox 05/24/20 14:50 98.7 F 63 16 126/76 97 - Assessment/Plan Assessment:: Fall Facial lacerations abrasion hand. Plan: Ice to the sore areas. Tylenol as needed for pain. Leave the Dermabond glue pretty much alone. Do not get it wet. Do not pull at it. If the edges start to peel, do not pull off just trim the edges with a finger nail clipper. Watch for signs of infection. Return to the ED if new or worsening symptoms. Recheck with PCP if any concerns.
[2020-05-24 15:12] VITALS: BP 126/76; PULSE 63
== END 2020-05-24 15:10 | disposition home or self-care (01) ==
LOC: VM.ED 14:38
DX: S01.81XA Laceration without foreign body of other part of head, initial encounter (principal); S60.411A Abrasion of left index finger, initial encounter; E78.5 Hyperlipidemia, unspecified; J45.909 Unspecified asthma, uncomplicated; K21.9 Gastro-esophageal reflux disease without esophagitis; E11.9 Type 2 diabetes mellitus without complications; E03.9 Hypothyroidism, unspecified; F41.9 Anxiety disorder, unspecified; Z88.1 Allergy status to other antibiotic agents; Z88.2 Allergy status to sulfonamides; Z88.5 Allergy status to narcotic agent; Z88.8 Allergy status to other drugs, medicaments and biological substances; Z79.899 Other long term (current) drug therapy; W01.198A Fall on same level from slipping, tripping and stumbling with subsequent striking against other object, initial encounter
CPT/HCPCS: 12001; 12011; 99282-25; 99283

== ENCOUNTER 2021-09-14 09:30 | Day surgery (SDC) | payer MEDICARE, BC ==
[~2021-09-14 09:30] MED LIST: Lactated Ringers 1,000 ML IV SCH
[2021-09-14] MEDS ORDERED: fentaNYL 100 MCG/2 ML SDV ONE ×2 (11:13→11:14)
[2021-09-14] MEDS ORDERED: Propofol 200 MG/20 ML SDV ONE (11:13)
[2021-09-14 12:18] VITALS: BP 112/64; PULSE 55
--- NOTE | 2021-09-15 14:28 | OR ---
PREOPERATIVE DIAGNOSIS: History of colon polyps. POSTOPERATIVE DIAGNOSIS: History of colon polyps. PROCEDURE PERFORMED: Total flexible colonoscopy with biopsies. ANESTHESIA: MAC. COMPLICATIONS: None. BLOOD LOSS: Minimal. FINDINGS: Cecal polyps x2, 2 mm, periappendiceal, cold forceps. Start time 1131, cecum 1139, stop 1152. BOWEL PREP: [place] class 3. INDICATIONS: Velma Mclaughlin is a 66-year-old female who had a colonoscopy 5 years ago. She has a history of polyps. She does struggle with constipation, which is longstanding. No bloody or dark black stools. No family history of colon cancer. PROCEDURE IN DETAIL: Informed consent was obtained. Patient was brought to the procedure room, placed in left lateral decubitus position. MAC anesthesia was used per Anesthesia colleagues without incident. The colonoscope was introduced in the rectum. It was advanced up to the cecum. The appendiceal orifice and terminal ileum were photographed. The colonoscope was then slowly withdrawn. No pathology identified except for as mentioned above finding section. Retroflexed views obtained and the colonoscope was withdrawn. The patient tolerated the procedure well. She was awoken from anesthesia by Anesthesia colleagues without incident. PATHOLOGY: Recommend repeat colonoscopy in 5 years. RKM: 09/14/2021 11:56:24 MODL: 09/14/2021 18:56:26 /[id number] KIANNA
--- NOTE | 2021-09-25 11:48 | LETTER ---
09/25/2021 Velma Orozco [address] [place] [id number] RE: VELMA OROZCO : 1955 Dear Marydel: I am writing to inform you of the pathology results of your repeat colonoscopy. We removed 2 polyps. Both of these polyps were completely benign and are not the type that can turn into cancer over time. Given your history of polyps in the past, I recommend you get a repeat colonoscopy in 5 years. Warmest regards,
== END 2021-09-14 13:00 | disposition home or self-care (01) ==
LOC: VM.SDS 09:30
PROVIDERS: ATTEND Student in an Organized Health Care Education/Training Program
DX: K63.5 Polyp of colon (principal); K59.00 Constipation, unspecified; K21.9 Gastro-esophageal reflux disease without esophagitis; I10 Essential (primary) hypertension; E78.1 Pure hyperglyceridemia; J45.40 Moderate persistent asthma, uncomplicated; G47.33 Obstructive sleep apnea (adult) (pediatric); E03.9 Hypothyroidism, unspecified; F41.9 Anxiety disorder, unspecified; F32.A Depression, unspecified; E11.9 Type 2 diabetes mellitus without complications; G43.909 Migraine, unspecified, not intractable, without status migrainosus; E66.01 Morbid (severe) obesity due to excess calories; Z98.890 Other specified postprocedural states; Z79.899 Other long term (current) drug therapy; Z88.2 Allergy status to sulfonamides; Z88.8 Allergy status to other drugs, medicaments and biological substances; Z88.5 Allergy status to narcotic agent; Z68.31 Body mass index [BMI] 31.0-31.9, adult
CPT/HCPCS: 00811; 45380; 88305; J2704; J3010; J7120

== ENCOUNTER 2024-05-29 16:59 | Emergency (ER) | payer MEDICARE, BC ==
[2024-05-29] MEDS: Acetaminophen 500 MG Tab PO ONE (17:30)
[2024-05-29 19:00] VITALS: BP 143/69; PULSE 78
== END 2024-05-29 18:05 | disposition home or self-care (01) ==
LOC: VM.ED 16:59
DX: U07.1 COVID-19 (principal); I10 Essential (primary) hypertension; E78.00 Pure hypercholesterolemia, unspecified; E11.65 Type 2 diabetes mellitus with hyperglycemia; E03.9 Hypothyroidism, unspecified; Z91.048 Other nonmedicinal substance allergy status; Z88.2 Allergy status to sulfonamides; Z88.5 Allergy status to narcotic agent; Z88.8 Allergy status to other drugs, medicaments and biological substances; Z88.1 Allergy status to other antibiotic agents; Z79.890 Hormone replacement therapy; Z79.899 Other long term (current) drug therapy
CPT/HCPCS: 99283; A9270